=== PATIENT | male | born 1960 | race Caucasian/White ===

== ENCOUNTER 2020-05-02 09:48 | Emergency (ER) | payer OTHER ==
[~2020-05-02] VITALS: Ht 160 cm; Wt 65.8 kg
[2020-05-02] MEDS ORDERED: IBUPROFEN 600 MG TABLET ONE (10:05)
[2020-05-02] MEDS: IBUPROFEN 600 MG TABLET PO ONE (10:08)
--- NOTE | 2020-05-02 11:03 | NUR ---
Patient a/ox4, breathing even and unlabored, given ice pack for shoulder pain. Ambulatory with steady gait. No distress noted. Patient discharged to home in stable condition. Written and verbal after care instructions given. Patient verbalizes understanding of instruction.
[2020-05-02 11:09] VITALS: BP 129/69
== END 2020-05-02 11:09 | disposition home or self-care (01) ==
LOC: ER 09:52
DX: S40.012A Contusion of left shoulder, initial encounter (principal); Z96.653 Presence of artificial knee joint, bilateral; V49.49XA Driver injured in collision with other motor vehicles in traffic accident, initial encounter; Y93.89 Activity, other specified; Y92.488 Other paved roadways as the place of occurrence of the external cause; Y99.8 Other external cause status
CPT/HCPCS: 73030-TC